=== PATIENT | male | born 1985 | race African-American/Black ===

== ENCOUNTER 2018-11-29 17:49 | Emergency (ER) | payer MEDICAID, OTHER ==
[~2018-11-29] VITALS: Ht 190.5 cm; Wt 100.0 kg
[2018-11-29 18:13] VITALS: BP 151/95
[2018-11-29] MEDS ORDERED: KETOROLAC TROMETHAMINE 60 MG/2 ML VIAL IM ONE (18:45)
[2018-11-29] MEDS ORDERED: IBUPROFEN 800 MG TABLET PO ONE (20:00)
== END 2018-11-29 20:06 | disposition home or self-care (01) ==
LOC: EMS 17:52
DX: M79.671 Pain in right foot (principal); M79.672 Pain in left foot; F17.210 Nicotine dependence, cigarettes, uncomplicated; Z59.0 Homelessness
CPT/HCPCS: 99406; J1885